=== PATIENT | male | born 1945 | race Caucasian/White ===

== ENCOUNTER 2022-09-09 10:51 | Outpatient (CLI) | payer MEDICARE, BC, SELFPAY ==
--- NOTE | 2022-09-09 06:00 | DI.RAD_ITS ---
Exam(s) XR PAIN CLINIC LUMBAR SP 2V EXAM: XR PAIN CLINIC LUMBAR SP 2V CLINICAL HISTORY: Dx: Lumbar Radiculopathy. TECHNIQUE: 2D and realtime digital imaging was performed. COMPARISON: No exams were available for comparison FINDINGS: Please see procedure note for details. Fluoro time: 45.8seconds RADIATION DOSE DELIVERED: melinda Barnhart=34.6 mGy
[2022-09-09 11:06] VITALS: BP 158/78; PULSE 64; RESP 20; TEMP 36.6; O2SAT 97
--- NOTE | 2022-09-09 12:12 | PDOC.PAIN_ITS ---
Date of service: 09/09/22 Time of Service: 12:17 Pain Managment Procedure Note Procedure Note Procedure Note: CAUDAL EPIDURAL STEROID WITH CATHETER INJECTION PROCEDURE NOTE COMMENTS: He was sent for the procedure by his spine surgeon. He has low back pain radiating down the right leg (posterior thigh and calf). He had lumbar laminectomy in 1994. I did propose a caudal MOMO because of the lumbar spine surgery scar. Dx: Lumbar radiculopathy Pre-procedure pain VAS was 6/10 MATHIEU SÁNCHEZ has been referred to the [facility] for lumbar epidural steroid injection. Patient was greeted by the nurse who verified the patient?s name and .? Patient was then taken to the fluoroscopy suite. The patient was interviewed and the medical record was reviewed.? There were no medical, pharmacologic, radiographic, or other structural contraindications to attempting fluoroscopically guided caudal epidural steroid injection. Risks and expected side effects as well as potential benefits of the procedure were reviewed and voiced concerns addressed.? The patient consent form was signed.? Standard time-out procedure was performed. The patient was placed in the prone position on the fluoroscopy table and automated blood pressure cuff, pulse oximeter, and 3 lead EKG was applied.? The skin entry point for entering/approaching the sacral hiatus was marked.? Following thorough chlorhexadine preparation of the skin and draping and 1% li docaine infiltration of the skin entry point and subcutaneous tissues, a 17 gauge Touhy needle was placed under fluoroscopic guidance through the sacral hiatus.? Needle tip placement and depth were aided and confirmed by fluoroscopy. There was no paresthesia or return of blood or CSF through the needle. A 19G Arrow spinal catheter was threaded to the L5 vertebral body height and 1 cc's of Omnipaque 240 was injected with clear epidural spread confirmed with fluoroscopy.? Aspiration was performed with no resulting blood or clear fluid. One cc of depomedrol (80 mg/cc) was injected.? This was followed by 2 cc of 1% Lidocaine to flush the catheter.?There was not any unusual discomfort expressed.? The needle and catheter were removed together without difficulty. Vital signs were stable throughout the procedure and were as recorded in nursing records.? Follow up plans and appointments were discussed.? Post procedure instruction was given as documented in nursing records and having met discharge criteria and was discharged from the [facility]. Comments: Post-procedure pain VAS was 6/10. If this procedure allows for at least 50% pain improvement and/or functional improvement for at least 3 months, it can be repeated. Mathieu Calvert DO, MPH [facility]
[2022-09-09 12:15] VITALS: BP 161/71; PULSE 71; RESP 20; O2SAT 95
[2022-09-09] MEDS: Omnipaque 240 MG/ML 50 ML BTL IJ (12:16)
[2022-09-09] MEDS: methylPREDNISolone ACETATE 80 MG/ML VIAL IJ (12:16)
== END 2022-09-09 10:52 | disposition home or self-care (01) ==
PROVIDERS: PCP Internal Medicine; Visit Provider Preventive Medicine Occupational Medicine
DX: M54.16 Radiculopathy, lumbar region (principal); M54.50 Low back pain, unspecified
CPT/HCPCS: 62323; 72100; J1040; Q9967